=== PATIENT | male | born 1995 | race Native Hawaiian/Other Pacific Islander ===

== ENCOUNTER 2023-09-08 23:43 | Emergency (ER) | payer SELFPAY ==
[~2023-09-08] VITALS: Ht 160 cm; Wt 59.0 kg
--- NOTE | 2023-09-09 00:06 | ED Abdominal Pain ---
General Chief Complaint: Abdominal/GI Problems Stated Complaint: BACK/ABD PAIN Nursing Triage Note: upper abdominal pain/pressure with intermittant dark stools, back pain all over x2-3 weeks. denies injury. Source of Information: Patient Exam Limitations: Language Barrier History of Present Illness Date Seen by Provider: Sep 09, 2023 Time Seen by Provider: 00:05 Initial Comments Patient is a 27-year-old male who presents to the emergency department with his chief complaint of epigastric abdominal pain, sharp in nature. This has been going on for 3 weeks. He has not sought any providers or treatment until this evening when apparently he could not sleep due to the pain. He has not taken any fqxh-ngc-lrrwymk medications to try and alleviate his pain. He did have food around 4:00 this afternoon. This did not seem to worsen his pain but he does get diarrhea every time he eats. He states since yesterday he has had some bloody stools. He states the pain seems to radiate into his back. He does not smoke or drink alcohol. No reported injuries. No fevers or chills. No urinary difficulties. No prior abdominal surgeries. No daily medications. Timing/Duration: Other (3 weeks) Severity/Quality: Sharp Location: Epigastric Radiation: No Radiation Modifying Factors: Improves With Other (working and standing up makes it worse) Associated Symptoms: Nausea/Vomiting (nausea without vomiting; diarrhea when eating; also blood in stool yesterday) Allergies and Home Medications Allergies Coded Allergies: No Known Drug Allergies (Unverified , 09/08/23) Patient Home Medication List Home Medication List Reviewed: Yes No Active Prescriptions or Reported Meds Review of Systems Review of Systems Constitutional: see HPI Respiratory: No Symptoms Reported Cardiovascular: No Symptoms Reported Gastrointestinal: Abdominal Pain, Diarrhea, Nausea, Other (blood in stool) Genitourinary: No Symptoms Reported Musculoskeletal: no symptoms reported Skin: no symptoms reported Past Mlhnxps-Gupnpc-Xerhox Hx Patient Social History Tobacco Use?: No Substance use?: No Alcohol Use?: No Pt feels they are or have been: No Past Medical History Surgery/Hospitalization HX: denies Physical Exam Vital Signs Vital Signs - First Documented 09/08/23 23:50 Temp 35.8 Pulse 68 Resp 16 B/P (MAP) 133/84 (100) Pulse Ox 96 O2 Delivery Room Air Capillary Refill : Less Than 3 Seconds Height/Weight/BMI Height: '" Weight: lbs. oz. kg; 23.00 BMI Method: General Appearance: WD/WN, no apparent distress, thin HEENT: PERRL/EOMI Respiratory: lungs clear, normal breath sounds, no respiratory distress, no accessory muscle use Cardiovascular: regular rate, rhythm Gastrointestinal: normal bowel sounds, soft, tenderness (mild tenderness RUQ, equivocal Canada's; no rebound or inviluntary guarding) Genital/Rectal: normal rectal exam, heme negative stool, normal rectal tone Extremities: normal range of motion, normal inspection Back: normal inspection Neurologic/Psychiatric: alert, normal mood/affect, oriented x 3 Skin: normal color, warm/dry Progress/Results/Core Measures Results/Orders Lab Results Laboratory Tests Test 09/09/23 00:23 Range/Units White Blood Count 12.9 H 4.3-11.0 10^3/uL Red Blood Count 5.99 H 4.30-5.52 10^6/uL Hemoglobin 17.1 13.3-17.7 g/dL Hematocrit 50 40-54 % Mean Corpuscular Volume 84 80-99 fL Mean Corpuscular Hemoglobin 29 25-34 pg Mean Corpuscular Hemoglobin Concent 34 32-36 g/dL Red Cell Distribution Width 12.5 10.0-14.5 % Platelet Count 243 130-400 10^3/uL Mean Platelet Volume 11.2 9.0-12.2 fL Immature Granulocyte % (Auto) 0 % Neutrophils (%) (Auto) 59 42-75 % Lymphocytes (%) (Auto) 29 12-44 % Monocytes (%) (Auto) 6 0-12 % Eosinophils (%) (Auto) 6 0-10 % Basophils (%) (Auto) 1 0-10 % Neutrophils # (Auto) 7.5 1.8-7.8 10^3/uL Lymphocytes # (Auto) 3.7 1.0-4.0 10^3/uL Monocytes # (Auto) 0.7 0.0-1.0 10^3/uL Eosinophils # (Auto) 0.8 H 0.0-0.3 10^3/uL Basophils # (Auto) 0.1 0.0-0.1 10^3/uL Immature Granulocyte # (Auto) 0.1 0.0-0.1 10^3/uL Sodium Level 139 135-145 MMOL/L Potassium Level 3.3 L 3.6-5.0 MMOL/L Chloride Level 105 98-107 MMOL/L Carbon Dioxide Level 23 21-32 MMOL/L Anion Gap 11 5-14 MMOL/L Blood Urea Nitrogen 10 7-18 MG/DL Creatinine 0.88 0.60-1.30 MG/DL Estimat Glomerular Filtration Rate 120 BUN/Creatinine Ratio 11 Glucose Level 96 70-105 MG/DL Calcium Level 9.7 8.5-10.1 MG/DL Corrected Calcium 8.5-10.1 MG/DL Total Bilirubin 0.6 0.1-1.0 MG/DL Aspartate Amino Transf (AST/SGOT) 26 5-34 U/L Alanine Aminotransferase (ALT/SGPT) 33 0-55 U/L Alkaline Phosphatase 76 40-136 U/L Total Protein 8.3 H 6.4-8.2 GM/DL Albumin 4.6 H 3.2-4.5 GM/DL My Orders Orders - ZACH FLORES MD Ed Iv/Invasive Line Start (09/09/23 00:26) Cbc And Automated Diff (09/09/23 00:26) Comprehensive Metabolic Panel (09/09/23 00:26) Antacid Suspension (Antacid Suspension (09/09/23 00:30) Lidocaine 2% Viscous 15 Ml (Xylocaine Vi (09/09/23 00:30) Sucralfate Tablet (Sucralfate Tablet) (09/09/23 00:30) Ondansetron Injection (Ondansetron Inj (09/09/23 00:30) Fecal Occult Bedside (09/09/23 00:29) Ketorolac Injection (Ketorolac Injection (09/09/23 01:30) Medications Given in ED Current Medications Medications Dose Ordered Sig/Gela Route Start Time Stop Time Status Last Admin Dose Admin Al Hydrox/Mg Hydrox/Simethicone 30 ml ONCE ONCE PO 09/09/23 00:30 09/09/23 00:32 DC 09/09/23 00:35 30 ML Ketorolac Tromethamine 15 mg ONCE ONCE IVP 09/09/23 01:30 09/09/23 01:28 DC 09/09/23 01:25 15 MG Lidocaine HCl 5 ml ONCE ONCE PO 09/09/23 00:30 09/09/23 00:32 DC 09/09/23 00:35 5 ML Ondansetron HCl 4 mg ONCE ONCE IVP 09/09/23 00:30 09/09/23 00:32 DC 09/09/23 00:35 4 MG Sucralfate 1 gm ONCE ONCE PO 09/09/23 00:30 09/09/23 00:32 DC 09/09/23 00:35 1 GM Vital Signs/I&O 09/08/23 09/09/23 23:50 01:27 Temp 35.8 36.0 Pulse 68 69 Resp 16 16 B/P (MAP) 133/84 (100) 114/80 Pulse Ox 96 99 O2 Delivery Room Air Room Air Blood Pressure Mean: 100 Progress Progress Note : Time: 01:11 Progress Note Patient seen and examined by me. Examination today includes history and physica l, CBC and CMP. There is somewhat of a language barrier as the patient is Citizen Of [place] and his is translating. There is some difficulty with her understanding questioning and it requires questioning in various ways in order to try and elicit history. Pertinent physical exam includes well-developed well-nourished thin male in no acute distress. He has normal bowel sounds, mildly tender abdomen in the epigastrium and right upper quadrant. Negative Canada sign. No peritoneal findings, involuntary guarding or rebound. Digital rectal exam reveals no gross blood, Hemoccult negative. No masses are palpated. Differential diagnosis includes GI bleed/peptic ulcer, gastroesophageal reflux, biliary colic, gastritis Labs independently reviewed and interpreted by me. His CBC is normal, CMP is normal. Patient is treated in the emergency department with 4 mg IV Zofran and a GI cocktail which includes 5 mils viscous lidocaine, 30 mils Maalox and 1 g of Carafate. He achieved significant relief of his dyspepsia. Continued to complain of some mild back pain and 15 mg of IV Toradol was ordered. No concerning findings on physical examination or on laboratory studies to warrant further work-up. Consideration for CT abdomen and pelvis with IV contrast however history and physical do not support the need of this at this time. Recommended follow-up with [facility] to further evaluate and manage his discomfort. He likely may need a gallbladder ultrasound at some point. Suspect gastritis/peptic ulcer disease. Have advised them to obtain an uuky-fef-pkphhyt acid casting and locker room servicer such as generic Prilosec and take this daily for the next 3 weeks while arranging for follow-up at [facility]. All questions are sought and answered, return precautions provided in both verbal and written format. Patient is improved at discharge. Departure Impression Primary Impression: Epigastric abdominal pain Additional Impression: Back pain Qualified Codes: M54.50 - Low back pain, unspecified Disposition: HOME, SELF-CARE Condition: Improved Departure-Patient Inst. Decision time for Depature: 01:18 Referrals: [facility]DARYN PE[place]A,LOCAL PHYSICIAN (PCP) Primary Care Physician Patient Instructions: Ulcer and Gastritis Diet Add. Discharge Instructions: Start an over the counter stomach acid casting and locker room servicer medication such as generic prilosec. Take this every night for 3 weeks. Avoid spicy, greasy foods, especially before bed. Please call [facility] for a follow up appointment and to get established with a primary care doctor. Come back to the Emergency Department if you have any worsening symptoms, especially fever, vomiting or worsening pain. Scripts No Active Prescriptions or Reported Meds ZACH FLORES MD Sep 09, 2023 00:06
[2023-09-09] MEDS ORDERED: SUCRALFATE 1 GM TABLET PO ONE (00:30)
[2023-09-09] MEDS ORDERED: ONDANSETRON INJECTION 4 MG/2 ML (SDV) IVP ONE (00:30)
[2023-09-09] MEDS ORDERED: LIDOCAINE 2% VISCOUS 15 ML UDC PO ONE (00:30)
[2023-09-09] MEDS ORDERED: ANTACID SUSPENSION 30 ML UDC PO ONE (00:30)
[2023-09-09 00:39] LABS: BASOPHILS # (AUTO) 0.1 10^3/uL (0.0-0.1); BASOPHILS % (AUTO) 1 % (0-10); EOSINOPHILS # (AUTO) 0.8 10^3/uL (0.0-0.3); EOSINOPHILS % (AUTO) 6 % (0-10); HEMATOCRIT 50 % (40-54); HEMOGLOBIN 17.1 g/dL (13.3-17.7); LYMPHOCYTES # (AUTO) 3.7 10^3/uL (1.0-4.0); LYMPHOCYTES % (AUTO) 29 % (12-44); MEAN CORPUSCULAR HEMOGLOBIN 29 pg (25-34); MEAN CORPUSCULAR HGB CONC 34 g/dL (32-36); MEAN CORPUSCULAR VOLUME 84 fL (80-99); MEAN PLATELET VOLUME 11.2 fL (9.0-12.2); MONOCYTES # (AUTO) 0.7 10^3/uL (0.0-1.0); MONOCYTES % (AUTO) 6 % (0-12); NEUTROPHILS # (AUTO) 7.5 10^3/uL (1.8-7.8); NEUTROPHILS % (AUTO) 59 % (42-75); PLATELET COUNT 243 10^3/uL (130-400); WHITE BLOOD COUNT 12.9 10^3/uL (4.3-11.0)
[2023-09-09 00:52] LABS: ALBUMIN 4.6 GM/DL (3.2-4.5); CHLORIDE 105 MMOL/L (98-107); POTASSIUM 3.3 MMOL/L (3.6-5.0); SODIUM 139 MMOL/L (135-145)
[2023-09-09 00:53] LABS: CALCIUM 9.7 MG/DL (8.5-10.1)
[2023-09-09 00:54] LABS: GLUCOSE 96 MG/DL (70-105); TOTAL PROTEIN 8.3 GM/DL (6.4-8.2)
[2023-09-09 00:55] LABS: CARBON DIOXIDE 23 MMOL/L (21-32)
[2023-09-09 00:56] LABS: BILIRUBIN,TOTAL 0.6 MG/DL (0.1-1.0)
[2023-09-09 00:58] LABS: ALKALINE PHOSPHATASE 76 U/L (40-136); CREATININE SERUM 0.88 MG/DL (0.60-1.30); GFR ESTIMATED 120
[2023-09-09 00:59] LABS: BUN/CREATININE RATIO 11
[2023-09-09 01:01] LABS: ALANINE AMINOTRANSFERASE 33 U/L (0-55)
[2023-09-09 01:27] VITALS: BP 114/80
[2023-09-09] MEDS ORDERED: KETOROLAC INJ 15 MG/ML VIAL IVP ONE (01:30)
== END 2023-09-09 01:28 | disposition home or self-care (01) ==
LOC: ER 23:46
DX: R10.13 Epigastric pain (principal); M54.50 Low back pain, unspecified; R11.0 Nausea
CPT/HCPCS: 36415; 80053; 82274; 85025